=== PATIENT | female | born 1990 | race Two or more races ===

== ENCOUNTER 2020-01-27 17:17 | Emergency (ER) | payer OTHER ==
--- NOTE | 2020-01-27 17:26 | PDOC ---
Rapid Medical Evaluation Time Seen by Provider: 01/27/20 17:22 Medical Evaluation: 01/27/20 17:23 CC: 18 weeks , went for 3d u/s and was told no FHR. mild low back pain. resides in [place]. here for visit. Exam: vss, appears comfortable Plan: u/s
[2020-01-27 17:33] VITALS: BP 131/84; PULSE 85; TEMP 98.2; BMI 26.4
--- NOTE | 2020-01-27 18:33 | PDOC ---
History of Present Illness <Angela Wade - Last Filed: 01/27/20 18:41> - General History Source: Patient Exam Limitations: No Limitations - History of Present Illness Initial Comments: 01/27/20 18:27 21-year-old female no significant past medical history 18 weeks presents to the ED from [facility] stating that no heart rate was seen and that gestational age was measured at 12 weeks rather than 18. Pt was sent to the ED to confirm outside [place] results. Pt currently does not have any complaints. Pt otherwise denies: fevers, chills, syncope, lightheadedness, dizziness, headaches, neck pain, chest pain, shortness of breath, palpitations, back pain, abdominal pain, nausea, vomiting, diarrhea, constipation, vaginal bleeding, vaginal discharge. <Krishna Saunders - Last Filed: 01/27/20 19:04> - General Chief Complaint: Labor Assessment Stated Complaint: 18 WEEKS PREG/ ABS HEART BEAT Time Seen by Provider: 01/27/20 17:22 Past History <SheriAngela Monae - Last Filed: 01/27/20 18:41> - Medical History COPD: No Other medical history: hx spont ab - Reproductive History Is Patient Now?: Yes (#): 3 Para: 1 Therapeutic (s) & number: Yes Spontaneous : 1 - Psycho-Social/Smoking History Smoking History: Never smoked - Substance Abuse Hx (Audit-C & DAST Scrn) How often the patient has a drink containing alcohol: Never Score: In Men: 4 or > Positive; In Women: 3 or > Positive: 0 Screen Result (Pos requires Nsg. Audit-10AR): Negative In the last yr the pt used illegal drug/Rx for NonMed reason: No Score: Yes response is considered Positive: 0 Screen Result (Positive result requires Nsg. DAST-10): Negative <Krishna Saunders - Last Filed: 01/27/20 19:04> - Medical History Allergies/Adverse Reactions: Allergies Allergy/AdvReac Type Severity Reaction Status Date / Time No Known Allergies Allergy Verified 01/27/20 17:25 Home Medications: Ambulatory Orders NK [No Known Home Medication] 01/27/20 *Physical Exam - Vital Signs Last Vital Signs Temp Pulse Resp BP Pulse Ox 98.2 F 85 14 131/84 99 07/10/20 17:25 01/27/20 17:25 01/27/20 17:25 01/27/20 17:25 01/27/20 17:25 <SheriAngela Monae - Last Filed: 01/27/20 18:41> - Vital Signs Last Vital Signs Temp Pulse Resp BP Pulse Ox 98.2 F 85 14 131/84 99 01/27/20 17:25 01/27/20 17:25 01/27/20 17:25 01/27/20 17:25 01/27/20 17:25 - Physical Exam 01/27/20 19:00 Gen: AAOx 3, no acute distress, comfortable, no signs of respiratory distress HENT: atraumatic, normocephalic with no laceration or contusion. Nasal mucosa without erythema. Oropharynx without erythema or exudates. Mucous membranes moist. EYES: PERRL, EOM intact, conjunctiva pink NECK: supple; trachea midline; no JVD, no lymphadenopathy, or thyromegaly CV: RRR no murmurs, gallops, or rubs. CHEST: CTA b/l no wheezing, rales or rhonchi ABD: +BS/ND. no TTP; soft, no rebound, no guarding. uterine fundus slightly below the level of the umbilicus EXTREMITY: no cyanosis or erythema. 2+ dorsalis pedis, posterior tibial, and radial pulse. No pedal edema; no calf swelling or tenderness SKIN: no rash, warm and dry, no diaphoresis HEME: no purpura or ecchymosis NEURO: normal speech, CN II-XII intact, sensation intact, normal gait, no cerebellar deficits MS: 5/5 strength in all extremities, FROM intact in all extremities. <Krishna Saunders - Last Filed: 01/27/20 19:04> Medical Decision Making - Medical Decision Making The patient was seen and evaluated in conjunction with midlevel provider under my direct supervision, ancillary studies were reviewed. I agree with the plan as outlined withMARY Saunders. HPI, workup/dispo as outlined. VS reviewed, wnl. Patient apparently at 18 weeks gestation. Ultrasound reveals likely demise at 11 weeks discordant with dates. Type and screen CBC Bleeding control here Anticipate discharge, [employer] followup, return precautions including bleeding and abdominal cramping and pain. Reassurance and counseling provided at the bedside 01/27/20 18:41 <Angela Wade - Last Filed: 01/27/20 18:41> - Medical Decision Making 29 year old female presenting for evaluation of demise. VSS Will obtain T&S CBC and beta Abdominal US Ultrasound shows single intrauterine fetus with estimated sonographic stational age of 11 weeks 2 days. No heart activity could be detected compatible with demise correlate clinically and determine further evaluation follow-up Spoke with Dr Silva who states since patient has no symptoms or bleeding and is hemodynamically stable she may be discharged home with close OBGYN follow up. Informed pt on need to follow up without fail. Pt does not wish to wait for lab results and states she knows her blood type (O +) Pt is safe and stable for discharge appears well. Supportive care instructions explained and given to pt. Reasons to return emergently to ER explained and given. Importance of follow up with PMD and other specialists as indicated stressed to pt. Pt verbalized understanding of instructions. Pt to follow up with PMD in 2 days. <Krishna Saunders - Last Filed: 01/27/20 19:04> Discharge <Angela Wade - Last Filed: 01/27/20 18:41> - Discharge Information Problems reviewed: Yes <Krishna Saunders - Last Filed: 01/27/20 19:04> - Discharge Information Clinical Impression/Diagnosis: demise Condition: Stable Disposition: HOME - Patient Discharge Instructions Patient Printed Discharge Instructions: DI for Miscarriage Additional Instructions: Please follow up with OBGYN Without fail
[2020-01-27 19:10] LABS: BASO % 1.2 % (0-2.0); EOS % 1.2 % (0-4.5); HEMATOCRIT 39.9 % (32.4-45.2); HEMOGLOBIN 13.4 GM/dL (10.7-15.3); LYMPH % 23.3 % (8-40); MCH 29.4 pg (25.7-33.7); MCHC 33.5 g/dl (32.0-36.0); MEAN CELL VOLUME 87.7 fl (80-96); MEAN PLT VOLUME 8.1 fl (7.5-11.1); MONO % 5.6 % (3.8-10.2); NEUT % 68.7 % (42.8-82.8); PLATELET COUNT 314 K/MM3 (134-434); RBC 4.55 M/mm3 (3.60-5.2); RDW 13.8 % (11.6-15.6); WHITE BLOOD COUNT 11.9 K/mm3 (4.0-10.0)
== END 2020-01-27 19:00 | disposition home or self-care (01) ==
LOC: JER 17:17
DX: O36.4XX0 Maternal care for intrauterine death, not applicable or unspecified (principal); Z3A.28 28 weeks gestation of pregnancy
CPT/HCPCS: 36415; 76815-TC; 84702; 85025; 86850; 86900; 86901; 99285-25